=== PATIENT | male | born 1990 | race Caucasian/White ===

== ENCOUNTER → 2016-12-07 | Outpatient (CLI) | payer OTHER ==
[~2016-12-07] MED LIST: CLR10 PO; DOXY1SUS PO; PROB1TAB16 PO
[2016-12-10 15:26] LABS: O&P GIARDIA AG NOT DETECTED (NOT DETECTED)
== END ==
LOC: C.LAB 10:36
PROVIDERS: ATTEND Family Medicine
DX: R19.7 Diarrhea, unspecified (principal)

== ENCOUNTER → 2017-01-10 | Outpatient (CLI) | payer OTHER ==
[2017-01-10 13:58] LABS: LYME DISEASE AB IGG NEG (NEG)
[2017-01-10 14:01] LABS: LYME DISEASE AB IGM NEG (NEG)
== END | disposition home or self-care (01) ==
LOC: C.LAB1850 09:24
PROVIDERS: ATTEND Nurse Practitioner Adult Health
DX: A69.20 Lyme disease, unspecified (principal)

== ENCOUNTER → 2017-02-05 | Outpatient (CLI) | payer OTHER | END | disposition home or self-care (01) | LOC: C.LAB1850 14:17 | PROVIDERS: ATTEND Family Medicine | DX: R19.4 Change in bowel habit (principal) ==

== ENCOUNTER 2017-03-31 11:15 | Emergency (ER) | payer OTHER ==
[~2017-03-31] VITALS: Ht 182.9 cm; Wt 75.4 kg
[2017-03-31 11:27] VITALS: TEMP 37; Ht 182.9 cm; Wt 75.4 kg
[2017-03-31 11:41] LABS: HEMATOCRIT 47.1 % (42-52); MEAN CELL VOLUME 87.7 fL (80-100); MEAN CORPUSCULAR HEMOGLOBIN 29.4 pg (25-34); MEAN CORPUSCULAR HGB CONC 33.5 g/dl (32-36); MEAN PLATELET VOLUME 9.8 fL (7.4-10.4); PLATELET COUNT 291 K/uL (130-400); RED BLOOD COUNT 5.37 M/uL (4.7-6.1); WHITE BLOOD COUNT 6.62 K/uL (4.8-10.8)
[2017-03-31 11:44] VITALS: O2SAT 99
[2017-03-31 11:55] LABS: INR 1.1 (0.9-1.1); PARTIAL THROMBOPLASTIN RATIO 1.1; PROTHROMBIN TIME (PATIENT) 11.8 SECONDS (9.0-12.0)
--- NOTE | 2017-03-31 11:58 | DIAGNOSTIC IMAGING REPORT ---
SINGLE VIEW CHEST CLINICAL HISTORY: Chest discomfort. Tachycardia. FINDINGS: An AP, portable, upright chest radiograph is obtained. No prior studies are available for comparison at the time of dictation. The examination is degraded by portable technique and patient rotation. The cardiomediastinal silhouette is unremarkable. The lungs and pleural spaces are clear. No pneumothorax is seen. The bony thorax is grossly intact. IMPRESSION: No active disease in the chest. Electronically signed by: Jean Paul Diaz M.D. 03/31/2017 11:57 AM Dictated Date/Time: 03/31/2017 11:56 AM
[2017-03-31 12:02] LABS: BUN/CREATININE RATIO 11.5 (10-20); CALCIUM 8.9 mg/dl (8.5-10.1); CREATININE 0.97 mg/dl (0.60-1.40); POTASSIUM 3.6 mmol/L (3.5-5.1)
[2017-03-31 12:07] LABS: ALB/GLOB RATIO 1.2 (0.9-2)
[2017-03-31] MEDS ORDERED: SODIUM CHLORIDE 0.9% 1000ML 1,000 ML IV ONE (13:01)
[2017-03-31] MEDS ORDERED: SODIUM CHLORIDE 0.9% 1000ML 1,000 ML IV STA (13:01)
[2017-03-31 13:30] LABS: MAGNESIUM 2.4 mg/dl (1.8-2.4); THYROID STIMULATING HORMONE 1.06 uIu/ml (0.300-4.500)
[2017-03-31 14:48] VITALS: BP 139/90; PULSE 96; O2SAT 98
--- NOTE | 2017-03-31 14:49 | EMERGENCY ROOM VISIT NOTE ---
History Report prepared by Cristóbal: George Ramirez Under the Supervision of: Dr. Andrew Alva M.D. First contact with patient: 12:42 Chief Complaint: CARDIAC ASSESSMENT Stated Complaint: SVT Nursing Triage Summary: Patient arrives via ALS from home with complaints of his heart racing when he woke up this morning. "I had a thumping in my chest when I woke up." Mild SOB reported from patient. EMS arrived and his HR was in 160's, EMS administered 6mg of Adenosine and his HR decreased to 110's. History of Present Illness The patient is a 27 year old male who presents to the Emergency Room by EMS with complaints of an episode of heart palpitations beginning a few hours ago. He has no history of similar symptoms. He has a history of a heart murmur, and pectus excavatum. The patient denies any fevers, lightheadedness, diaphoresis, or recent illness. He states that his palpitations woke him up his sleep. He notes that he has been out in the sun a lot recently. The patient denies any recent travel. He was given 6 mg of Adenosine en route which significantly improved his symptoms. Per aunt, the patient appeared very "anxious" today. The patient notes that he had some alcohol last night. He estimates that he had about a liter of wine last night. He denies consuming any caffeine today. He notes that he was previous taking a dietary supplement, but stopped taking it over a week ago. Source of History: patient, family Onset: A few hours ago Quality: other (heart palpitations) Timing: other (episode) Modifying Factors (Relieving): other (Adenosine) Associated Symptoms: No fevers, No diaphoresis Note: The patient denies any lightheadedness. Review of Systems See HPI for pertinent positives & negatives. A total of 10 systems reviewed and were otherwise negative. Past Medical & Surgical Medical Problems: (1) Cellulitis and possible erythema Migrans (2) Heart murmur (3) Lyme disease (4) Pectus excavatum (5) Sinusitis Old medical records were reviewed. Nurse's notes were reviewed and I agree with. No history of arrhythmia/SVT or thyroid disease or diabetes Family History Patient reports no known family medical history. Social History Smoking Status: Never Smoker Alcohol Use: occasionally Drug Use: none Housing Status: lives with family Occupation Status: employed Current/Historical Medications No Active Prescriptions or Reported Meds Allergies Coded Allergies: No Known Allergies (Unverified , `, 04/07/16) Physical Exam Vital Signs Date Time Temp Pulse Resp B/P (MAP) Pulse Ox O2 Delivery O2 Flow Rate FiO2 03/31/17 14:48 96 18 139/90 98 03/31/17 14:26 91 18 144/88 99 Room Air 03/31/17 12:27 89 18 128/93 98 Room Air 03/31/17 12:07 97 03/31/17 11:44 94 18 99 Room Air 03/31/17 11:44 99 Room Air 03/31/17 11:27 37.0 103 18 125/79 98 Room Air 03/31/17 11:27 99 Room Air 03/31/17 11:27 99 Room Air Physical Exam General: Non ill appearing young male in no acute distress HEENT: Normal cephalic atraumatic. Pupils are equal round and reactive to light. Sclerae anicteric. Extraocular movements are intact. Oropharynx is pink with moist mucous membranes. No swelling of the mouth lips or tongue. Neck: Supple with a midline trachea. No meningeal signs or stiffness, no JVD or bruits. No Stridor. Chest: Clear to auscultation bilaterally. No wheezes or rhonchi. No increased work of breathing. Pectus excavatum noted. Heart: Mildly tachycardic intermittently with a regular rhythm. Abdomen: Soft nontender, nondistended without rebound guarding or rigidity. Extremities: No cyanosis clubbing or edema. No calf tenderness or assymetry Spine/Back. Non tender to palpation. No CVA tenderness Skin: Good turgor without rashes. Neurologic exam: Cranial nerves two through 12 are intact. Motor and sensation are intact and symmetrical throughout. No tremor. Medical Decision & Procedures ER Provider Diagnostic Interpretation: X-ray results as stated below per interpretation by me and the radiologist: SINGLE VIEW CHEST FINDINGS: An AP, portable, upright chest radiograph is obtained. No prior studies are available for comparison at the time of dictation. The examination is degraded by portable technique and patient rotation. The cardiomediastinal silhouette is unremarkable. The lungs and pleural spaces are clear. No pneumothorax is seen. The bony thorax is grossly intact. IMPRESSION: No active disease in the chest. Electronically signed by: Jean Paul Diaz M.D. Laboratory Results 03/31/17 11:00 03/31/17 11:00 Test 03/31/17 11:00 03/31/17 11:33 Red Blood Count 5.37 M/uL (4.7-6.1) Mean Corpuscular Volume 87.7 fL (80-100) Mean Corpuscular Hemoglobin 29.4 pg (25-34) Mean Corpuscular Hemoglobin Concent 33.5 g/dl (32-36) RDW Standard Deviation 43.2 fL (36.4-46.3) RDW Coefficient of Variation 13.5 % (11.5-14.5) Mean Platelet Volume 9.8 fL (7.4-10.4) Prothrombin Time 11.8 SECONDS (9.0-12.0) Prothromb Time International Ratio 1.1 (0.9-1.1) Activated Partial Thromboplast Time 28.2 SECONDS (21.0-31.0) Partial Thromboplastin Ratio 1.1 Anion Gap 9.0 mmol/L (3-11) Est Creatinine Clear Calc Drug Dose 119.8 ml/min Estimated GFR () 121.8 Estimated GFR (Non- 105.1 BUN/Creatinine Ratio 11.5 (10-20) Calcium Level 8.9 mg/dl (8.5-10.1) Magnesium Level 2.4 mg/dl (1.8-2.4) Total Bilirubin 0.4 mg/dl (0.2-1) Aspartate Amino Transf (AST/SGOT) 46 U/L (15-37) Alanine Aminotransferase (ALT/SGPT) 41 U/L (12-78) Alkaline Phosphatase 64 U/L (45-117) Total Creatine Kinase 231 U/L (39-308) Creatine Kinase MB 2.2 ng/ml (0.5-3.6) Creatine Kinase MB Ratio 1.0 (0-3.0) Total Protein 7.8 gm/dl (6.4-8.2) Albumin 4.3 gm/dl (3.4-5.0) Globulin 3.5 gm/dl (2.5-4.0) Albumin/Globulin Ratio 1.2 (0.9-2) Thyroid Stimulating Hormone (TSH) 1.060 uIu/ml (0.300-4.500) Bedside Troponin I 0.030 ng/ml (0-0.045) Laboratory studies as stated above per my review. Medications Administered Medications (Trade) Dose Ordered Sig/[place] Route Start Time Stop Time Status Last Admin Dose Admin Sodium Chloride 1,000 ml @ 999 mls/hr Q1H1M STAT IV 03/31/17 13:01 03/31/17 14:01 DC 03/31/17 13:01 999 MLS/HR Sodium Chloride 1,000 ml @ 200 mls/hr Q5H ONCE IV 03/31/17 13:01 03/31/17 15:15 DC 03/31/17 13:01 200 MLS/HR ECG Indication: palpitations Rate (beats per minute): 158 Rhythm: SVT Findings: no acute ischemic change Comparison ECG Date: no prior available Change: Repeat ECG reveals a sinus tachycardia with a rate of 112 bpm. No acute ischemic change or ectopy seen. Repeat ECG x2 reveals a sinus tachycardia with a rate of 101 bpm. 1st degree AV block noted. No acute ischemic change seen. ED Course 1248: Past medical records reviewed. The patient was evaluated in room C12B, and a complete history and physical examination were performed. 1301: Ordered Sodium Chloride 1000 ml @ 200 mls/hr IV, Sodium Chloride 1000 ml @ 999 mls/hr IV. 1427: I discussed the patient's case with Dr. Olivo of Cardiology. He agrees with the treatment plan with outpatient follow-up. 1437: Upon reevaluation, the patient is resting comfortably. I discussed the results and treatment plan with him. He verbalized agreement of the treatment plan. The patient was discharged home. Medical Decision Differentials include, but are not limited to; SVT, a-fib, thyroid disease, cardiac disease, and electrolyte or metabolic abnormality. This patient comes in as described above. He was placed in room C 12. Here for treatment and evaluation of an episode of PSVT. He was seen by EMS and they gave him adenosine 6 mg IV and he converted promptly. I have reviewed his prehospital EKGs and it does appear to be consistent with PSVT, is narrow complex regular rhythm at about 160. His EKG here shows mild sinus tachycardia the SD interval is slightly prolonged but he has no delta wave or anything else to suggest WPW at this point. He's remained stable and had no further arrhythmia while in the emergency department. Chest x-ray does not show congestive heart failure, pneumonia, or pneumothorax. He has no acute electrolyte or metabolic abnormalities. His thyroid appears to be within normal limits with a normal TSH. He has nothing to suggest acute coronary syndrome. He remained stable. I have made an appointment for him to be seen by a local electrician journeyman wireman. He will need further follow-up and echocardiogram I discuss case who agrees with the plan. The patient was encouraged to ensure that he stays well-hydrated and minimize alcohol use return if any new problems or recurrence of symptoms , chest pain , any new problems concerns. Impression Primary Impression: PSVT (paroxysmal supraventricular tachycardia) Scribe Attestation The scribe's documentation has been prepared under my direction and personally reviewed by me in its entirety. I confirm that the note above accurately reflects all work, treatment, procedures, and medical decision making performed by me. Departure Information Dispostion Home / Self-Care Prescriptions No Active Prescriptions or Reported Meds Referrals Emma De Leon MD (PCP) Forms IMPORTANT VISIT INFORMATION Patient Instructions [facility] Additional Instructions Rest. Drink plenty of fluids. Return if: Chest pain, shortness of breath recurrence of symptoms, any new problems or concerns. Follow-up with cardiology later this week or early next week. Our case management team will help you get an appointment
== END 2017-03-31 14:50 | disposition home or self-care (01) ==
LOC: EDBD 11:15 → C.EDC 11:16
DX: I47.1 Supraventricular tachycardia (principal); R01.1 Cardiac murmur, unspecified; Q67.6 Pectus excavatum; A69.20 Lyme disease, unspecified

== ENCOUNTER → 2017-06-09 | Day surgery (SDC) | payer OTHER ==
[~2017-06-09] VITALS: Ht 182.9 cm; Wt 67.7 kg
[~2017-06-09] MED LIST changes: +ATROPINE SULFATE 0.1 MG/ML 5ML SYR IV PRN; -CLR10 PO; -DOXY1SUS PO; +EpHEDrine SULFATE INJ 50 MG/ML AMP IV PRN; +FENTANYL CITRATE INJ 50 MCG/1 ML 2 ML VIAL ONE; +LIDOCAINE HCL 2% 2 ML VIAL (20MG/ML) ONE; -PROB1TAB16 PO; +PROPOFOL IV EMULSION 10 MG/ML 20 ML VIAL IV ONE; +SODIUM CHLORIDE 0.9% 500ML 500 ML IV ONE
[2017-06-09 14:56] VITALS: Ht 182.9 cm; Wt 67.7 kg
--- NOTE | 2017-06-09 15:26 | Endo History and Physical ---
History & Physical Date of Service: Jun 09, 2017. Chief Complaint: LOOSE STOOLS Referring Physician: DR HUMPHREYS History of Present Illness 27 yo CM who presents for colonoscopy secondary to abdominal cramping. Past Surgical History Hx Cardiac Surgery: No Hx Internal Defibrillator: No Hx Pacemaker: No Hx Abdominal Surgery: Yes (INGUINAL HERNIA REPAIR) Hx of Implantable Prosthesis: No Hx Post-Op Nausea and Vomiting: No Hx Cancer Surgery: No Hx Thoracic Surgery: No Hx Orthopedic: No Hx Urinary Tract Surgery: No Family History Esophogeal CA, IBD Social History Smoking Status: Never Smoker Hx Substance Use: Yes (MARIJUANA USE IN PAST (3 YEARS AGO)) Hx Alcohol Use: Yes (OCCASIONALLY (NO INTAKE IN 30 DAYS)) Allergies Coded Allergies: No Known Allergies (Unverified , `, 06/09/17) Current Medications Reported Home Medications Medications Dose Route/Sig Max Daily Dose Days Date Category No Active Prescriptions or Reported Medications Rx Vital Signs Weight (Kilograms): 67.73 Height (Feet): 6 Height (Inches): 0 Date Time Temp Pulse Resp B/P (MAP) Pulse Ox O2 Delivery O2 Flow Rate FiO2 06/09/17 15:03 37 70 20 130/91 (104) 97 Room Air Physical Exam General Appearance: WD/WN, no apparent distress Respiratory/Chest: Auscultation: breath sounds normal Cardiovascular: Heart Auscultation: RRR Abdomen: Bowel Sounds: normal Inspection & Palpation: soft, non-distended, no tenderness, guarding & rebound Assessment and Plan Assessment: 27 yo CM who presents for colonoscopy secondary to abdominal cramping. Plan: Proceed with colonoscopy.
--- NOTE | 2017-06-09 16:38 | Discharge Instructions ---
Endoscopy Patient Instructions Date / Procedure(s) Performed Jun 09, 2017. Colonoscopy Allergy Information Coded Allergies: No Known Allergies (Unverified , `, 06/09/17) Discharge Date / Findings Jun 09, 2017. Random colon biopsies Stool aspirate collected Internal hemorrhoids Medication Instructions OK to resume all medications today as prescribed Reported Home Medications Medications Dose Route/Sig Max Daily Dose Days Date Category No Active Prescriptions or Reported Medications Rx Provider Instructions Activity Restrictions - No exercising or heavy lifting for 24 hours. - Do not drink alcohol the day of the procedure. - Do not drive a car or operate machinery until the day after the procedure. - Do not make any important decisions or sign important papers in 24 hours after the procedure. Following Day: - Return to full activity which may include returning to work/school. Diet Start your diet with liquids and light foods (jello, soup, juice, toast). Then eat your usual diet if not nauseated. Treatment For Common After Affects For mild abdominal pain, bloating, or excessive gas: - Rest - Eat lightly - Lie on right side Follow-Up Information Follow-up with DR HUMPHREYS as scheduled Anesthesia Information What You Should Know You have had a procedure that required some medicine to reduce anxiety and discomfort. This treatment is called moderate sedation. After receiving the treatment, you may be sleepy, but you will be able to breathe on your own. The effects of the treatment may last for several hours. Follow these instructions along with Activity/Diet recommendations noted above: * Do NOT do anything where dizziness or clumsiness would be dangerous. * Rest quietly at home today, then you can be up and about tomorrow. * Have a responsible person stay with you the rest of today. * You may have had an I.V. today. If so, you may take the dressing off later today. Recommendations Call your doctor if: * Trouble breathing * Continuous vomiting for more than 24 hours * Temperature above 101 degrees * Severe abdominal pain or bloating * Pain not relieved by pain medicine ordered * There is increased drainage or redness from any incision * A large amount of rectal bleeding greater than 2-3 tablespoons. (If you had a polyp/s removed or have hemorrhoids, a small amount of blood - from the rectum is to be expected.) * You have any unanswered questions or concerns. IN THE EVENT OF A SERIOUS EMERGENCY, GO TO THE NEAREST EMERGENCY ROOM Your discharge instructions were prepared by provider Pete Walton. Patient Instructions Signature Page Jerry Damon Patient (or Guardian) Signature/Date: I have read and understand the instructions given to me by my caregivers. Caregiver/RN/Doctor Signature/Date: The above-named patient and/or guardian has received patient instructions on this date. + Original Patient Signature Page (only) stays with chart. Please make copy for patient.
--- NOTE | 2017-06-09 16:38 | GI REPORT ---
Procedure Date: 06/09/2017 4:02 PM Procedure: Colonoscopy Indications: Generalized abdominal pain Medicines: Monitored Anesthesia Care Complications: No immediate complications. Estimated Blood Loss: Estimated blood loss: none. Procedure: Pre-Anesthesia Assessment: - Prior to the procedure, a History and Physical was performed, and patient medications and allergies were reviewed. The patient's tolerance of previous anesthesia was also reviewed. The risks and benefits of the procedure and the sedation options and risks were discussed with the patient. All questions were answered, and informed consent was obtained. Prior Anticoagulants: The patient has taken no previous anticoagulant or antiplatelet agents. ASA Grade Assessment: II - A patient with mild systemic disease. After reviewing the risks and benefits, the patient was deemed in satisfactory condition to undergo the procedure. After I obtained informed consent, the scope was passed under direct vision. Throughout the procedure, the patient's blood pressure, pulse, and oxygen saturations were monitored continuously. The scope was introduced through the anus and advanced to the terminal ileum. The colonoscopy was performed without difficulty. The patient tolerated the procedure well. The quality of the bowel preparation was good. The terminal ileum, ileocecal valve, appendiceal orifice, and rectum were photographed. Findings: Non-bleeding internal hemorrhoids were found during retroflexion. The hemorrhoids were small. Several random biopsies were obtained with cold forceps for histology in the entire colon. Fluid aspiration for cytology was performed in the entire colon. Impression: - Non-bleeding internal hemorrhoids. - Several random biopsies were obtained in the entire colon. - Fluid aspiration was performed. Recommendation: - Resume previous diet. - Continue present medications. - Repeat colonoscopy for surveillance based on pathology results. - Return to primary care physician as previously scheduled. Pete Walton DO 06/09/2017 4:37:14 PM This report has been signed electronically. Note Initiated On: 06/09/2017 4:02 PM I attest to the content of the Intraoperative Record and orders documented therein, exceptions below
--- NOTE | 2017-06-09 16:56 | Anesthesiology Progress Note ---
Anesthesia Post Op Note Date & Time Jun 09, 2017 at 16:56 Vital Signs Pain Intensity: 0 Vital Signs Past 12 Hours Date Time Temp Pulse Resp B/P (MAP) Pulse Ox O2 Delivery O2 Flow Rate FiO2 06/09/17 16:40 83 20 122/86 (98) 98 Room Air 06/09/17 15:03 37 70 20 130/91 (104) 97 Room Air Notes Mental Status: alert / awake / arousable, participated in evaluation Pt Amnestic to Procedure: Yes Nausea / Vomiting: adequately controlled Pain: adequately controlled Airway Patency, RR, SpO2: stable & adequate BP & HR: stable & adequate Hydration State: stable & adequate Anesthetic Complications: no major complications apparent
[2017-06-09 17:10] VITALS: BP 118/81; PULSE 77; O2SAT 97
== END | disposition home or self-care (01) ==
LOC: C.GI 14:47
PROVIDERS: ATTEND Internal Medicine
DX: R10.84 Generalized abdominal pain (principal); R19.7 Diarrhea, unspecified; K64.8 Other hemorrhoids; Z80.0 Family history of malignant neoplasm of digestive organs; Z83.79 Family history of other diseases of the digestive system